=== PATIENT | female | born 1970 | race Caucasian/White ===

== ENCOUNTER 2018-04-14 21:48 | Emergency (ER) | payer MEDICAID, OTHER ==
[2018-04-14] MEDS ORDERED: Sodium Chloride 0.9% 1,000 ML IV ONE (21:53)
[2018-04-14 22:46] LABS: CHLORIDE,CL 102 mmol/L (98-107); SODIUM,NA 133 mmol/L (136-145)
[2018-04-14] MEDS ORDERED: Levofloxacin/Dextrose 5%-Water 750 MG in Premix Bag 1 BAG IV ONE (23:06)
--- NOTE | 2018-04-15 00:39 | EDM.PDOC ---
ED HPI GENERAL MEDICAL PROBLEM - General Chief Complaint: Genitourinary Problem Stated Complaint: ABDOMINAL PAIN Time Seen by Provider: 04/15/18 00:34 Source of Information: Reports: Patient - History of Present Illness INITIAL COMMENTS - FREE TEXT/NARRATIVE: HISTORY AND PHYSICAL: History of present illness: [Patient presents with intermittent subjective fever pain on her left side/ flank she rates 2 out of 10 no pain behaviors no nausea vomiting chills sweats, she has some dysuria the last few days. ] On lab exam she was found to have a hemoglobin of 7 she refuses rectal examination she states that she is chronically between 7 and [address] Bhandari, she refuses admission as she prefers to go to her grandson's birthday republican tomorrow we did discuss risks and benefits. She has clinical pyelonephritis developing and I cannot confirm her hemoglobin on record calf no previous hemoglobin to compare to a she was seen through [facility] Currently no fever nausea vomiting chills sweats no chest pain shortness breath headache dizziness or palpitation no bowel or urine symptoms no fatigue Review of systems: As per history of present illness and below otherwise all systems reviewed and negative. Past medical history: As per history of present illness and as reviewed below otherwise noncontributory. Surgical history: As per history of present illness and as reviewed below otherwise noncontributory. Social history: No reported history of drug or alcohol abuse. Family history: As per history of present illness and as reviewed below otherwise noncontributory. Physical exam: HEENT: Atraumatic, normocephalic, pupils reactive, negative for conjunctival pallor or scleral icterus, mucous membranes moist, throat clear, neck supple, nontender, trachea midline. Lungs: Clear to auscultation, breath sounds equal bilaterally, chest nontender. Heart: S1S2, regular, negative for clicks, rubs, or JVD. Abdomen: Obese Soft, nondistended, nontender. Negative for masses or hepatosplenomegaly. Negative for costovertebral tenderness. Pelvis: Stable nontender. Genitourinary: Deferred. Rectal: Deferred. Extremities: Atraumatic, negative for cords or calf pain. Neurovascular unremarkable. Neuro: Awake, alert, oriented. Cranial nerves II through XII unremarkable. Cerebellum unremarkable. Motor and sensory unremarkable throughout. Exam nonfocal. Diagnostics: [CBC CMP UA lipase ] Therapeutics: [1 L normal saline Levaquin 750 mg IV Levaquin 500 by mouth daily #10 no refill Impression : UTI Clinical pyelonephritis on the left anemia -asymptomatic Chronic history of baseline [] Definitive disposition and diagnosis as appropriate pending reevaluation and review of above. Left Abdomen Pain Score (Numeric/FACES): 6 - Related Data Allergies Allergy/AdvReac Type Severity Reaction Status Date / Time No Known Allergies Allergy Verified 04/14/18 23:57 Home Meds: Home Meds Hydrochlorothiazide 25 mg PO DAILY 02/07/16 [History] Levothyroxine 150 mcg PO DAILY 02/07/16 [History] metFORMIN [Glucophage] 2 tab PO BID 02/07/16 [History] atorvaSTATin [Lipitor] 10 mg PO 04/14/18 [History] Past Medical History HEENT History: Reports: None Cardiovascular History: Reports: Hypertension Respiratory History: Reports: None Gastrointestinal History: Reports: GERD Genitourinary History: Reports: Renal Calculus Musculoskeletal History: Reports: Arthritis Neurological History: Reports: None Psychiatric History: Reports: None Endocrine/Metabolic History: Reports: Diabetes, Type II, Hypothyroidism, Obesity /BMI 30+ Hematologic History: Reports: None Immunologic History: Reports: None Oncologic (Cancer) History: Reports: None Dermatologic History: Reports: None - Past Surgical History Head Surgeries/Procedures: Reports: None GI Surgical History: Reports: Cholecystectomy Social & Family History - Family History Family Medical History: Noncontributory - Tobacco Use Smoking Status *Q: Never Smoker - Caffeine Use Caffeine Use: Reports: None - Recreational Drug Use Recreational Drug Use: No ED ROS GENERAL - Review of Systems Review Of Systems: ROS reveals no pertinent complaints other than HPI. ED EXAM, GENERAL - Physical Exam Exam: See Below Course - Vital Signs Last Recorded V/S: Last Vital Signs Temp 99.1 F 04/14/18 23:26 Pulse 102 H 04/14/18 23:26 Resp 17 04/14/18 23:26 BP 152/67 H 04/14/18 23:26 Pulse Ox 100 04/14/18 23:26 - Orders/Labs/Meds Orders: Active Orders 24 hr Category Date Time Status CULTURE BLOOD [BC] Stat Lab 04/14/18 23:17 Received CULTURE BLOOD [BC] Stat Lab 04/14/18 23:27 Received CULTURE URINE [RM] Stat Lab 04/14/18 22:42 Received Guaiac [OCCULT BLOOD DIAGNOSTIC] [OP] Stat Lab 04/14/18 22:48 Ordered UA W/MICROSCOPIC [URIN] Stat Lab 04/14/18 22:16 Ordered Levofloxacin/Dextrose 5%-Water [Levaquin in D5W 750 MG/ Med 04/14/18 23:06 Active 150 ML] 750 mg Premix Bag 1 bag IV ONETIME Blood Culture x2 Reflex Set [OM.PC] Stat Oth 04/14/18 22:46 Ordered Medication Orders Levofloxacin/Dextrose 750 mg/ (Premix) 150 mls @ 100 mls/hr IV ONETIME ONE Stop: 04/15/18 00:35 Last Admin: 04/14/18 23:34 Dose: 100 mls/hr Labs: Laboratory Tests 04/14/18 04/14/18 04/14/18 Range/Units 22:05 22:05 22:16 WBC 12.51 H (4.0-11.0) K/uL RBC 4.07 L (4.30-5.90) M/uL Hgb 7.2 L (12.0-16.0) g/dL Hct 25.6 L (36.0-46.0) % MCV 62.9 L (80.0-98.0) fL MCH 17.7 L (27.0-32.0) pg MCHC 28.1 L (31.0-37.0) g/dL RDW Std Deviation 44.0 (28.0-62.0) fl RDW Coeff of Ewa 19 H (11.0-15.0) % Plt Count 329 (150-400) K/uL MPV 9.70 (7.40-12.00) fL Neut % (Auto) 76.9 (48.0-80.0) % Lymph % (Auto) 14.0 L (16.0-40.0) % [place]rell % (Auto) 7.4 (0.0-15.0) % Eos % (Auto) 1.4 (0.0-7.0) % Baso % (Auto) 0.3 (0.0-1.5) % Neut # (Auto) 9.6 H (1.4-5.7) K/uL Lymph # (Auto) 1.8 (0.6-2.4) K/uL [place] # (Auto) 0.9 H (0.0-0.8) K/uL Eos # (Auto) 0.2 (0.0-0.7) K/uL Baso # (Auto) 0.0 (0.0-0.1) K/uL Nucleated RBC % 0.0 /100WBC Nucleated RBCs # 0 K/uL Sodium 133 L (136-145) mmol/L Potassium 3.9 (3.5-5.1) mmol/L Chloride 102 (98-107) mmol/L Carbon Dioxide 20.2 L (21.0-32.0) mmol/L BUN 19 H (7.0-18.0) mg/dL Creatinine 1.1 H (0.6-1.0) mg/dL Est Cr Clr Drug Dosing TNP Estimated GFR (MDRD) 53.5 ml/min Glucose 180 H (74-106) mg/dL Calcium 8.6 (8.5-10.1) mg/dL Total Bilirubin 0.3 (0.2-1.0) mg/dL AST 13 L (15-37) IU/L ALT 16 (14-63) IU/L Alkaline Phosphatase 84 (46-116) U/L Troponin I < 0.050 (0.000-0.056) ng/mL Total Protein 7.1 (6.4-8.2) g/dL Albumin 3.2 L (3.4-5.0) g/dL Globulin 3.9 H (2.0-3.5) g/dL Albumin/Globulin Ratio 0.8 L (1.3-2.8) Lipase 129 (73-393) U/L Urine Color YELLOW Urine Appearance CLEAR Urine pH 6.0 (5.0-8.0) Ur Specific [place] 1.020 (1.001-1.035) Urine Protein TRACE (NEGATIVE) mg/dL Urine Glucose (UA) NEGATIVE (NEGATIVE) mg/dL Urine Ketones NEGATIVE (NEGATIVE) mg/dL Urine Occult Blood LARGE H (NEGATIVE) Urine Nitrite NEGATIVE (NEGATIVE) Urine Bilirubin NEGATIVE (NEGATIVE) Urine Urobilinogen 0.2 (<2.0) EU/dL Ur Leukocyte Esterase MODERATE (NEGATIVE) Urine RBC 14-18 (0-2/HPF) Urine WBC 45-52 (0-5/HPF) Ur Epithelial Cells FEW (NONE-FEW) Urine Bacteria FEW (NEGATIVE) Urine Mucus LIGHT (NONE-MOD) Blood Type Antibody Screen 04/14/18 Range/Units 23:17 WBC (4.0-11.0) K/uL RBC (4.30-5.90) M/uL Hgb (12.0-16.0) g/dL Hct (36.0-46.0) % MCV (80.0-98.0) fL MCH (27.0-32.0) pg MCHC (31.0-37.0) g/dL RDW Std Deviation (28.0-62.0) fl RDW Coeff of Ewa (11.0-15.0) % Plt Count (150-400) K/uL MPV (7.40-12.00) fL Neut % (Auto) (48.0-80.0) % Lymph % (Auto) (16.0-40.0) % Tyrrell % (Auto) (0.0-15.0) % Eos % (Auto) (0.0-7.0) % Baso % (Auto) (0.0-1.5) % Neut # (Auto) (1.4-5.7) K/uL Lymph # (Auto) (0.6-2.4) K/uL [place] # (Auto) (0.0-0.8) K/uL Eos # (Auto) (0.0-0.7) K/uL Baso # (Auto) (0.0-0.1) K/uL Nucleated RBC % /100WBC Nucleated RBCs # K/uL Sodium (136-145) mmol/L Potassium (3.5-5.1) mmol/L Chloride (98-107) mmol/L Carbon Dioxide (21.0-32.0) mmol/L BUN (7.0-18.0) mg/dL Creatinine (0.6-1.0) mg/dL Est Cr Clr Drug Dosing Estimated GFR (MDRD) ml/min Glucose (74-106) mg/dL Calcium (8.5-10.1) mg/dL Total Bilirubin (0.2-1.0) mg/dL AST (15-37) IU/L ALT (14-63) IU/L Alkaline Phosphatase (46-116) U/L Troponin I (0.000-0.056) ng/mL Total Protein (6.4-8.2) g/dL Albumin (3.4-5.0) g/dL Globulin (2.0-3.5) g/dL Albumin/Globulin Ratio (1.3-2.8) Lipase (73-393) U/L Urine Color Urine Appearance Urine pH (5.0-8.0) Ur Specific [place] (1.001-1.035) Urine Protein (NEGATIVE) mg/dL Urine Glucose (UA) (NEGATIVE) mg/dL Urine Ketones (NEGATIVE) mg/dL Urine Occult Blood (NEGATIVE) Urine Nitrite (NEGATIVE) Urine Bilirubin (NEGATIVE) Urine Urobilinogen (<2.0) EU/dL Ur Leukocyte Esterase (NEGATIVE) Urine RBC (0-2/HPF) Urine WBC (0-5/HPF) Ur Epithelial Cells (NONE-FEW) Urine Bacteria (NEGATIVE) Urine Mucus (NONE-MOD) Blood Type A POSITIVE Antibody Screen NEGATIVE Meds: Medications Generic Name Dose Route Start Last Admin Trade Name Freq PRN Reason Stop Dose Admin Levofloxacin/Dextrose 750 mg/ 150 mls @ 100 mls/hr 04/14/18 23:06 04/14/18 23 :34 Premix IV 04/15/18 00:35 100 mls/hr ONETIME ONE Administration Discontinued Medications Generic Name Dose Route Start Last Admin Trade Name Freq PRN Reason Stop Dose Admin Sodium Chloride 1,000 mls @ 999 mls/hr 04/14/18 21:53 04/14/18 22:28 Normal Saline IV 04/14/18 22:53 999 mls/hr STAT ONE Administration Departure - Departure Time of Disposition: 00:37 Disposition: Home, Self-Care 01 Condition: Good Clinical Impression: UTI, Urinary tract infectious disease - Discharge Information Referrals: Haile Bhandari MD [Primary Care Provider] - Additional Instructions: Medication as prescribed Return if symptoms persist or worsen Follow-up with Dr. Bhandari on Wednesday and repeat hemoglobin, return to emergency room if symptoms persist or worsen or new concerning symptoms develop such as fever nausea vomiting chills sweats lightheaded dizzy short of breath or fatigue should they develop [address] [address] The following information is given to patients seen in the emergency department who are being discharged to home. This information is to outline your options for follow-up care. We provide all patients seen in our emergency department with a follow-up referral. The need for follow-up, as well as the timing and circumstances, are variable depending upon the specifics of your emergency department visit. If you don't have a primary care physician on staff, we will provide you with a referral. We always advise you to contact your personal physician following an emergency department visit to inform them of the circumstance of the visit and for follow-up with them and/or the need for any referrals to a consulting specialist. The emergency department will also refer you to a specialist when appropriate. This referral assures that you have the opportunity for follow-up care with a specialist. All of these measure are taken in an effort to provide you with optimal care, which includes your follow-up. Under all circumstances we always encourage you to contact your private physician who remains a resource for coordinating your care. When calling for follow-up care, please make the office aware that this follow-up is from your recent emergency room visit. If for any reason you are refused follow-up, please contact the [facility] emergency department at and asked to speak to the emergency department charge nurse. - My Orders Last 24 Hours: My Active Orders 04/14/18 22:16 UA W/MICROSCOPIC [URIN] Stat 04/14/18 22:42 CULTURE URINE [RM] Stat 04/14/18 22:46 Blood Culture x2 Reflex Set [OM.PC] Stat 04/14/18 22:48 Guaiac [OCCULT BLOOD DIAGNOSTIC] [OP] Stat 04/14/18 23:06 Levofloxacin/Dextrose 5%-Water [Levaquin in D5W 750 MG/150 ML] 750 mg Premix Bag 1 bag IV ONETIME 04/14/18 23:17 CULTURE BLOOD [BC] Stat 04/14/18 23:27 CULTURE BLOOD [BC] Stat - Assessment/Plan Last 24 Hours: My Active Orders 04/14/18 22:16 UA W/MICROSCOPIC [URIN] Stat 04/14/18 22:42 CULTURE URINE [RM] Stat 04/14/18 22:46 Blood Culture x2 Reflex Set [OM.PC] Stat 04/14/18 22:48 Guaiac [OCCULT BLOOD DIAGNOSTIC] [OP] Stat 04/14/18 23:06 Levofloxacin/Dextrose 5%-Water [Levaquin in D5W 750 MG/150 ML] 750 mg Premix Bag 1 bag IV ONETIME 04/14/18 23:17 CULTURE BLOOD [BC] Stat 04/14/18 23:27 CULTURE BLOOD [BC] Stat
[2018-04-15 01:37] VITALS: BP 123/77
== END 2018-04-15 01:08 | disposition home or self-care (01) ==
LOC: MW.ED 21:48
DX: N12 Tubulo-interstitial nephritis, not specified as acute or chronic (principal); D64.9 Anemia, unspecified; I10 Essential (primary) hypertension; E11.9 Type 2 diabetes mellitus without complications; E03.9 Hypothyroidism, unspecified; Z79.84 Long term (current) use of oral hypoglycemic drugs; Z79.899 Other long term (current) drug therapy
CPT/HCPCS: 36415; 80053; 81001; 83690; 84484; 85025; 86850; 86900; 86901; 87040; 87086; 87088; 87186; 96361; 96365; 96366; 99284; J1956; J7040; 99283

== ENCOUNTER 2018-05-26 08:23 | Day surgery (SDC) | payer MEDICAID, OTHER ==
[~2018-05-26 08:23] MED LIST: Acetaminophen 1,000 MG in Premix Bag 1 BAG IV SCH; Lidocaine 2% 5 ML SDV ONE; Midazolam 1 MG/ML 2 ML SDV ONE; Ondansetron 4 MG/2 ML SDV ONE; Propofol 200 MG/20 ML SDV ONE; Rocuronium 10 MG/ML 10 ML Syringe ONE; Scopolamine 1.5 MG Transdermal Patch TRDERM PRN; Sodium Chloride 0.9% 10 ML Syringe FLUSH PRN; Sodium Chloride 0.9% 2.5 ML Syringe FLUSH PRN; ceFAZolin 1 GM Vial IV SCH; fentaNYL 100 MCG/2 ML SDV IVPUSH PRN; fentaNYL 250 MCG/5 ML SDV ONE
[2018-05-26] MEDS: Lactated Ringers 1,000 ML IV SCH ×2 (09:02→14:50)
--- NOTE | 2018-05-26 09:09 | PCM.PREANE ---
Preanesthetic Assessment - Anesthesia/Transfusion/Family Hx Anesthesia History: Prior Anesthesia Without Reaction Family History of Anesthesia Reaction: No Transfusion History: No Prior Transfusion(s) Intubation History: Unknown - Review of Systems General: No Symptoms Pulmonary: No Symptoms Cardiovascular: No Symptoms Gastrointestinal: No Symptoms Neurological: No Symptoms Other: Reports: None - Physical Assessment O2 Sat by Pulse Oximetry: 100 Respiratory Rate: 16 Vital Signs: Last Vital Signs Temp 36.8 C 05/26/18 08:56 Pulse 89 05/26/18 08:56 Resp 16 05/26/18 08:56 BP 175/84 H 05/26/18 08:56 Pulse Ox 100 05/26/18 08:56 Height: 1.6 m Weight: 131.542 kg ASA Class: 3 Mental Status: Alert & Oriented x3 Airway Class: Mallampati = 2 Dentition: Reports: Normal Dentition Thyro-Mental Finger Breadths: 3 Mouth Opening Finger Breadths: 3 ROM/Head Extension: Full Lungs: Clear to Auscultation, Normal Respiratory Effort Cardiovascular: Regular Rate, Regular Rhythm - Lab Values: Laboratory Last Values WBC 5.41 K/uL (4.0-11.0) 05/25/18 11:34 RBC 4.21 M/uL (4.30-5.90) L 05/25/18 11:34 Hgb 7.9 g/dL (12.0-16.0) L 05/25/18 11:34 Hct 28.4 % (36.0-46.0) L 05/25/18 11:34 MCV 67.5 fL (80.0-98.0) L 05/25/18 11:34 MCH 18.8 pg (27.0-32.0) L 05/25/18 11:34 MCHC 27.8 g/dL (31.0-37.0) L 05/25/18 11:34 RDW Std Deviation 58.2 fl (28.0-62.0) 05/25/18 11:34 RDW Coeff of Ewa 24 % (11.0-15.0) H 05/25/18 11:34 Plt Count 438 K/uL (150-400) H 05/25/18 11:34 MPV 8.80 fL (7.40-12.00) 05/25/18 11:34 Nucleated RBC % 0.0 /100WBC 05/25/18 11:34 Nucleated RBCs # 0 K/uL 05/25/18 11:34 Sodium 138 mmol/L (136-145) 05/25/18 11:34 Potassium 4.2 mmol/L (3.5-5.1) 05/25/18 11:34 Chloride 104 mmol/L (98-107) 05/25/18 11:34 Carbon Dioxide 25.3 mmol/L (21.0-32.0) 05/25/18 11:34 BUN 13 mg/dL (7.0-18.0) 05/25/18 11:34 Creatinine 1.0 mg/dL (0.6-1.0) 05/25/18 11:34 Est Cr Clr Drug Dosing 58.15 mL/min 05/25/18 11:34 Estimated GFR (MDRD) 59.7 ml/min 05/25/18 11:34 Glucose 124 mg/dL (74-106) H 05/25/18 11:34 Calcium 8.5 mg/dL (8.5-10.1) 05/25/18 11:34 HCG, Qual NEGATIVE (NEG) 05/25/18 11:34 Blood Type A POSITIVE 05/25/18 11:34 Antibody Screen NEGATIVE 05/25/18 11:34 Crossmatch See Detail 05/25/18 11:34 - Allergies Allergies/Adverse Reactions: Allergies Allergy/AdvReac Type Severity Reaction Status Date / Time No Known Allergies Allergy Verified 05/26/18 09:03 - Blood Blood Available: No - Anesthesia Plan Pre-Op Medication Ordered: None - Acknowledgements Anesthesia Type Planned: General Anesthesia Pt an Appropriate Candidate for the Planned Anesthesia: Yes Alternatives and Risks of Anesthesia Discussed w Pt/Guardian: Yes Pt/Guardian Understands and Agrees with Anesthesia Plan: Yes PreAnesthesia Questionnaire HEENT History: Reports: Other (See Below) Other HEENT History: wears glasses Cardiovascular History: Reports: High Cholesterol, Hypertension Respiratory History: Reports: None Gastrointestinal History: Reports: Other (See Below) Other Gastrointestinal History: occasional heartburn, h/o gastric ulcer Genitourinary History: Reports: Renal Calculus [employer] History: Reports: Dysfunctional Uterine Bleeding, Musculoskeletal History: Reports: Arthritis Neurological History: Reports: None Psychiatric History: Reports: None Endocrine/Metabolic History: Reports: Diabetes, Type II, Hypothyroidism, Obesity /BMI 30+ Hematologic History: Reports: Anemia Immunologic History: Reports: None Oncologic (Cancer) History: Reports: None Dermatologic History: Reports: None - Past Surgical History Head Surgeries/Procedures: Reports: None GI Surgical History: Reports: Cholecystectomy Female Surgical History: Reports: Kidney stone extraction, Tubal Ligation Other Female Surgeries/Procedures: surgical procedure for removal of kidney stone Dermatological Surgical History: Reports: Other (See Below) - SUBSTANCE USE Smoking Status *Q: Never Smoker Recreational Drug Use History: No - HOME MEDS Home Medications: Home Meds Hydrochlorothiazide 25 mg PO DAILY 02/07/16 [History] metFORMIN [Glucophage] 2 tab PO BID 02/07/16 [History] atorvaSTATin [Lipitor] 10 mg PO DAILY 04/14/18 [History] Hydrocodone/Acetaminophen [Hydrocodon-Acetaminophen 5-325] 1 tab PO ASDIRECTED PRN 05/23/18 [History] Levothyroxine Sodium [Synthroid] 25 mg PO DAILY 05/23/18 [History] Lisinopril 5 mg PO DAILY 05/23/18 [History] - CURRENT (IN HOUSE) MEDS Current Meds: Current Medications Cefazolin Sodium (Ancef) 3 gm IV ONETIME ADELITA Fentanyl (Sublimaze) 50 mcg IVPUSH .Q5MIN PRN PRN Reason: Pain Lactated Ringer's (Ringers, Lactated) 1,000 mls @ 125 mls/hr IV ASDIRECTED ADELITA Last Admin: 05/26/18 09:02 Dose: 125 mls/hr Acetaminophen 1,000 mg/ Premix 100 mls @ 400 mls/hr IV .ONETIME ADELITA Last Admin: 05/26/18 09:03 Dose: 400 mls/hr Scopolamine (Transderm-Scop) 1.5 mg TRDERM .ONCE PRN PRN Reason: Post Op Nausea Last Admin: 05/26/18 09:02 Dose: 1.5 mg Sodium Chloride (Saline Flush) 10 ml FLUSH ASDIRECTED PRN PRN Reason: Keep Vein Open Sodium Chloride (Saline Flush) 2.5 ml FLUSH ASDIRECTED PRN PRN Reason: Keep Vein Open Discontinued Medications Fentanyl (Sublimaze) Confirm Administered Dose 250 mcg .ROUTE .STK-MED ONE Stop: 05/26/18 07:29 Lidocaine (Xylocaine-Mpf 2%) Confirm Administered Dose 5 ml .ROUTE .STK-MED ONE Stop: 05/26/18 07:29 Midazolam HCl (Versed 1 Mg/Ml) Confirm Administered Dose 2 mg .ROUTE .STK-MED ONE Stop: 05/26/18 07:29 Ondansetron HCl (Zofran) Confirm Administered Dose 4 mg .ROUTE .STK-MED ONE Stop: 05/26/18 07:29 Propofol (Diprivan 20 Ml) Confirm Administered Dose 200 mg .ROUTE .STK-MED ONE Stop: 05/26/18 07:29 Rocuronium [place] (Zemuron) Confirm Administered Dose 100 mg .ROUTE .STK-MED ONE Stop: 05/26/18 07:29
[2018-05-26] MEDS ORDERED: ceFAZolin/Dextrose,Iso-Osmotic 2 GM/50 ML Duplex Bag IV ONE (09:47)
[2018-05-26] MEDS ORDERED: ceFAZolin 1 GM Vial ONE (09:47)
[2018-05-26] MEDS ORDERED: Fluorescein 5 ML Vial ONE (10:27)
[2018-05-26] MEDS ORDERED: diphenhydrAMINE 50 MG/ML SDV ONE (10:32)
[2018-05-26] MEDS ORDERED: HYDROmorphone 2 MG/ML SDV ONE (10:34)
[2018-05-26] MEDS ORDERED: Furosemide 40 MG/4 ML VIAL ONE (10:36)
[2018-05-26] MEDS ORDERED: Glycopyrrolate 0.2 MG/ML SDV ONE (10:57)
[2018-05-26] MEDS ORDERED: Neostigmine Methylsulfate 1 MG/ML 5 ML Syringe ONE (10:57)
[2018-05-26] MEDS ORDERED: Acetaminophen/oxyCODONE 325-5 MG Tab PO PRN (11:05)
[2018-05-26] MEDS ORDERED: Promethazine 25 MG/ML SDV IM PRN (11:05)
[2018-05-26] MEDS ORDERED: Ketorolac 30 MG/ML SDV IVPUSH ONE ×2 (11:05→14:30)
[2018-05-26] MEDS ORDERED: Morphine 4 MG/ML Syringe IVPUSH PRN (11:05)
[2018-05-26] MEDS ORDERED: Ondansetron 4 MG/2 ML SDV IVPUSH PRN (11:05)
--- NOTE | 2018-05-26 11:11 | PCM.OPNOTE ---
- General Post-Op/Procedure Note Date of Surgery/Procedure: 05/26/18 Operative Procedure(s): TVH, RSO and cystoscopy Pre Op Diagnosis: bleeding. Post-Op Diagnosis: Same Anesthesia Technique: General ET Tube Primary Surgeon: Aleksander Ray EBL in mLs: 150 Complications: None Condition: Good
[2018-05-26] MEDS: Acetaminophen/oxyCODONE 325-5 MG Tab PO PRN ×2 (12:57→19:16)
--- NOTE | 2018-05-26 13:50 | OR ---
SURGEON: Aleksander Ray MD DATE OF PROCEDURE: 05/26/2018 PREOPERATIVE DIAGNOSES: 1. Menometrorrhagia. 2. Anemia. POSTOPERATIVE DIAGNOSES: 1. Menometrorrhagia. 2. Anemia. OPERATIONS PERFORMED: Total vaginal hysterectomy and left salpingo-oophorectomy and cystoscopy. PHYSICIAN RECRUITER: OR tech. ANESTHESIA: General endotracheal intubation, Andreia Subramanian and Dr. Alston. ESTIMATED BLOOD LOSS: 150 mL. COMPLICATIONS: None. FINDINGS: Uterus is about 10-week size. The left tube and ovary essentially are normal. The right tube and ovary are not visible through the operative field. INDICATION FOR SURGERY: [place] referred to the admit note. PROCEDURE IN DETAIL: The patient was brought to the OR, properly identified and after adequate level of general anesthesia and taking a time-out, the patient was placed in lithotomy position, prepped and draped in sterile fashion as usual. A straight catheter was used to empty the bladder, and then a short-weighted speculum was placed in the vagina. Circular incision in the vaginal mucosa around the cervix was done using electrocautery and then the posterior cul-de-sac entered posteriorly. The perineum and the vagina tacked posteriorly with 2-0 Vicryl, held for further identification. Then extended long weighted speculum placed within in, then the short weighted speculum replaced with an extended long weighted speculum. The uterosacral ligament identified from both sides, clamped with a curved Zeppelin, transected, and suture-ligated with 2-0 Vicryl pop-off. The same thing was done with the cardinal ligament from both sides and then the cervicovesical space entered anteriorly and the bladder retracted completely away from the operative field. The broad ligament was clamped with a curved Zeppelin from both sides, transected, and suture-ligated with 2-0 Vicryl pop-off. The uterine vessel suture-ligated at this step and then the round ligament clamped with a curved Zeppelin from both sides, transected, and suture-ligated with 2-0 Vicryl pop- off. Next, the uterus delivered posteriorly and the superior pedicle was taken with 90 degree curved Zeppelin. The left tube and ovary were taken because easily accessible and visible. The right tube and ovary were not visible and were not accessible, and I elected not to remove them. The superior pedicle tied twice with a free tie on both sides. The vaginal cuff was closed with 2-0 Vicryl interrupted [id number] sutures. Cystoscopy was performed, and the bladder was intact. Both ureteric orifices were seen with fluorescein dye coming from both of them. Thus, the patency of both ureters verified. Instrument and sponge count was correct. The patient tolerated the procedure well and went to recovery room in stable general condition. DEONTE / DANE /[id number] MTDShauna
[2018-05-26] MEDS ORDERED: Ketorolac 30 MG/ML SDV IVPUSH PRN (20:30)
[2018-05-27] MEDS: Acetaminophen/oxyCODONE 325-5 MG Tab PO PRN ×3 (01:24→10:22)
[2018-05-27 05:12] VITALS: BP 120/60
--- NOTE | 2018-05-27 07:43 | PCM48HPAN ---
Post Anesthesia Note - EVALUATION WITHIN 48HRS OF ANESTHETIC Vital Signs in Normal Range: Yes Patient Participated in Evaluation: Yes Respiratory Function Stable: Yes Airway Patent: Yes Cardiovascular Function Stable: Yes Hydration Status Stable: Yes Pain Control Satisfactory: Yes Nausea and Vomiting Control Satisfactory: Yes Mental Status Recovered: Yes Resp Rate: 18 - COMMENTS/OBSERVATIONS Free Text/Narrative:: Pt states she had a problem with pain control last night around shift change - just not receiving medication in time and then playing catch up. However, she said after that she has kept on a schedule and is doing well this morning. No problems with nausea. No apparent anesthesia complications. Hgb 8.0 this AM after 2 units intraop yesterday.
--- NOTE | 2018-05-27 09:27 | PCM.PN ---
- General Info Date of Service: 05/27/18 Functional Status: Reports: Pain Controlled - Review of Systems General: Reports: No Symptoms HEENT: Reports: No Symptoms Pulmonary: Reports: No Symptoms Cardiovascular: Reports: No Symptoms Gastrointestinal: Reports: No Symptoms Genitourinary: Reports: No Symptoms Musculoskeletal: Reports: No Symptoms Skin: Reports: No Symptoms Neurological: Reports: No Symptoms Psychiatric: Reports: No Symptoms - Patient Data Vitals - Most Recent: Last Vital Signs Temp 36.3 C 05/27/18 05:00 Pulse 78 05/27/18 05:00 Resp 18 05/27/18 07:43 BP 120/60 05/27/18 05:00 Pulse Ox 98 05/27/18 05:00 Weight - Most Recent: 131.542 kg I&O - Last 24 Hours: Intake & Output 05/26/18 05/27/18 05/27/18 22:59 06:59 14:59 Intake Total 1500 Balance 1500 Lab Results Last 24 Hours: Laboratory Results - last 24 hr 05/25/18 05/25/18 05/25/18 Range/Units 11:34 11:34 11:34 WBC (4.0-11.0) K/uL RBC (4.30-5.90) M/uL Hgb (12.0-16.0) g/dL Hct (36.0-46.0) % MCV (80.0-98.0) fL MCH (27.0-32.0) pg MCHC (31.0-37.0) g/dL RDW Std Deviation (28.0-62.0) fl RDW Coeff of Ewa (11.0-15.0) % Plt Count (150-400) K/uL MPV (7.40-12.00) fL Neut % (Auto) (48.0-80.0) % Lymph % (Auto) (16.0-40.0) % [place] % (Auto) (0.0-15.0) % Eos % (Auto) (0.0-7.0) % Baso % (Auto) (0.0-1.5) % Neut # (Auto) (1.4-5.7) K/uL Lymph # (Auto) (0.6-2.4) K/uL [place] # (Auto) (0.0-0.8) K/uL Eos # (Auto) (0.0-0.7) K/uL Baso # (Auto) (0.0-0.1) K/uL Nucleated RBC % /100WBC Nucleated RBCs # K/uL Sodium 138 (136-145) mmol/L Potassium 4.2 (3.5-5.1) mmol/L Chloride 104 (98-107) mmol/L Carbon Dioxide 25.3 (21.0-32.0) mmol/L BUN 13 (7.0-18.0) mg/dL Creatinine 1.0 (0.6-1.0) mg/dL Est Cr Clr Drug Dosing 58.15 mL/min Estimated GFR (MDRD) 59.7 ml/min Glucose 124 H (74-106) mg/dL Calcium 8.5 (8.5-10.1) mg/dL Blood Type A POSITIVE Antibody Screen NEGATIVE Crossmatch See Detail See Detail 05/27/18 05/27/18 Range/Units 04:58 04:58 WBC 8.20 (4.0-11.0) K/uL RBC 3.83 L (4.30-5.90) M/uL Hgb 8.0 L (12.0-16.0) g/dL Hct 27.3 L (36.0-46.0) % MCV 71.3 L (80.0-98.0) fL MCH 20.9 L (27.0-32.0) pg MCHC 29.3 L (31.0-37.0) g/dL RDW Std Deviation 63.1 H (28.0-62.0) fl RDW Coeff of Ewa 24 H (11.0-15.0) % Plt Count 347 (150-400) K/uL MPV 8.80 (7.40-12.00) fL Neut % (Auto) 67.4 (48.0-80.0) % Lymph % (Auto) 23.5 (16.0-40.0) % [place] % (Auto) 6.5 (0.0-15.0) % Eos % (Auto) 2.4 (0.0-7.0) % Baso % (Auto) 0.2 (0.0-1.5) % Neut # (Auto) 5.5 (1.4-5.7) K/uL Lymph # (Auto) 1.9 (0.6-2.4) K/uL [place] # (Auto) 0.5 (0.0-0.8) K/uL Eos # (Auto) 0.2 (0.0-0.7) K/uL Baso # (Auto) 0.0 (0.0-0.1) K/uL Nucleated RBC % 0.0 /100WBC Nucleated RBCs # 0 K/uL Sodium 137 (136-145) mmol/L Potassium 4.6 (3.5-5.1) mmol/L Chloride 103 (98-107) mmol/L Carbon Dioxide 29.2 (21.0-32.0) mmol/L BUN 13 (7.0-18.0) mg/dL Creatinine 1.1 H (0.6-1.0) mg/dL Est Cr Clr Drug Dosing 52.86 mL/min Estimated GFR (MDRD) 53.5 ml/min Glucose 121 H (74-106) mg/dL Calcium 8.0 L (8.5-10.1) mg/dL Blood Type Antibody Screen Crossmatch Med Orders - Current: Current Medications Cefazolin Sodium (Ancef) 3 gm IV ONETIME [facility] Fentanyl (Sublimaze) 50 mcg IVPUSH .Q5MIN PRN PRN Reason: Pain Lactated Ringer's (Ringers, Lactated) 1,000 mls @ 125 mls/hr IV ASDIRECTED [facility] Last Admin: 05/26/18 14:50 Dose: 125 mls/hr Acetaminophen 1,000 mg/ Premix 100 mls @ 400 mls/hr IV .ONETIME [facility] Last Admin: 05/26/18 09:03 Dose: 400 mls/hr Ketorolac Tromethamine (Toradol) 30 mg IVPUSH Q6H PRN PRN Reason: Pain (severe 7-10) Stop: 05/31/18 20:31 Last Admin: 05/26/18 21:21 Dose: 30 mg Ondansetron HCl (Zofran) 4 mg IVPUSH Q6H PRN PRN Reason: Nausea/Vomiting Oxycodone/Acetaminophen (Percocet 325-5 Mg) 1 tab PO Q4H PRN PRN Reason: Pain (moderate 4-6) Oxycodone/Acetaminophen (Percocet 325-5 Mg) 2 tab PO Q4H PRN PRN Reason: Pain (moderate 4-6) Last Admin: 05/27/18 06:01 Dose: 2 tab Promethazine HCl (Phenergan) 25 mg IM Q6H PRN PRN Reason: Nausea/Vomiting Scopolamine (Transderm-Scop) 1.5 mg TRDERM .ONCE PRN PRN Reason: Post Op Nausea Last Admin: 05/26/18 09:02 Dose: 1.5 mg Sodium Chloride (Saline Flush) 10 ml FLUSH ASDIRECTED PRN PRN Reason: Keep Vein Open Sodium Chloride (Saline Flush) 2.5 ml FLUSH ASDIRECTED PRN PRN Reason: Keep Vein Open Discontinued Medications Cefazolin Sodium (Ancef) Confirm Administered Dose 1 gm .ROUTE .STK-MED ONE Stop: 05/26/18 09:48 Cefazolin Sodium/Dextrose (Ancef) Confirm Administered Dose 2 gm IV .STK-MED ONE Stop: 05/26/18 09:48 Diphenhydramine HCl (Benadryl) Confirm Administered Dose 50 mg .ROUTE .STK-MED ONE Stop: 05/26/18 10:33 Fentanyl (Sublimaze) Confirm Administered Dose 250 mcg .ROUTE .STK-MED ONE Stop: 05/26/18 07:29 Fluorescein Sodium (Ak-Fluor) Confirm Administered Dose 5 ml .ROUTE .STK-MED ONE Stop: 05/26/18 10:28 Furosemide (Lasix) Confirm Administered Dose 40 mg .ROUTE .STK-MED ONE Stop: 05/26/18 10:37 Glycopyrrolate (Robinul) Confirm Administered Dose 0.4 mg .ROUTE .STK-MED ONE Stop: 05/26/18 10:58 Hydromorphone HCl (Dilaudid) Confirm Administered Dose 2 mg .ROUTE .STK-MED ONE Stop: 05/26/18 10:35 Ketorolac Tromethamine (Toradol) 30 mg IVPUSH ONETIME ONE Stop: 05/26/18 11:06 Last Admin: 05/26/18 14:53 Dose: Not Given Ketorolac Tromethamine (Toradol) 30 mg IVPUSH ONETIME ONE Stop: 05/26/18 14:31 Last Admin: 05/26/18 14:50 Dose: 30 mg Lidocaine (Xylocaine-Mpf 2%) Confirm Administered Dose 5 ml .ROUTE .STK-MED ONE Stop: 05/26/18 07:29 Midazolam HCl (Versed 1 Mg/Ml) Confirm Administered Dose 2 mg .ROUTE .STK-MED ONE Stop: 05/26/18 07:29 Morphine Sulfate (Morphine) 4 mg IVPUSH Q2H PRN PRN Reason: Pain (severe 7-10) Neostigmine Methylsulfate (Neostigmine) Confirm Administered Dose 5 mg .ROUTE .STK-MED ONE Stop: 05/26/18 10:58 Ondansetron HCl (Zofran) Confirm Administered Dose 4 mg .ROUTE .STK-MED ONE Stop: 05/26/18 07:29 Propofol (Diprivan 20 Ml) Confirm Administered Dose 200 mg .ROUTE .STK-MED ONE Stop: 05/26/18 07:29 Rocuronium [place] (Zemuron) Confirm Administered Dose 100 mg .ROUTE .STK-MED ONE Stop: 05/26/18 07:29 - Exam General: Alert, Oriented HEENT: Pupils Equal, Pupils Reactive, EOMI, Mucous Membr. Moist/[place] Neck: Supple Lungs: Clear to Auscultation, Normal Respiratory Effort Cardiovascular: Regular Rate, Regular Rhythm GI/Abdominal Exam: Normal Bowel Sounds, Soft, Non-Tender, No Organomegaly, No Distention, No Abnormal Bruit, No Mass, Pelvis Stable (Female) Exam: Normal External Exam, Normal Speculum Exam, Normal Bimanual Exam Back Exam: Normal Inspection, Full Range of Motion Extremities: Normal Inspection, Normal Range of Motion, Non-Tender, No Pedal Edema, Normal Capillary Refill Skin: Warm, Dry, Intact Wound/Incisions: Healing Well Neurological: No New Focal Deficit Psy/Mental Status: Alert, Normal Affect, Normal Mood - Problem List Review Problem List Initiated/Reviewed/Updated: Yes - My Orders Last 24 Hours: My Active Orders 05/26/18 11:05 Patient Status [ADT] Routine Notify Provider Vital Signs [RC] ASDIRECTED Oxygen Therapy [RC] ASDIRECTED RT Incentive Spirometry [RC] Q2HWA Up With Assistance [RC] PER UNIT ROUTINE Up ad [place] [RC] PER UNIT ROUTINE Vital Signs [RC] PER UNIT ROUTINE Acetaminophen/oxyCODONE [Percocet 325-5 MG] 1 tab PO Q4H PRN Acetaminophen/oxyCODONE [Percocet 325-5 MG] 2 tab PO Q4H PRN Ondansetron [Zofran] 4 mg IVPUSH Q6H PRN Promethazine [Phenergan] 25 mg IM Q6H PRN Peripheral IV Discontinue [OM.PC] Routine Sequential Compression Device [OM.PC] Per Unit Routine Resuscitation Status Routine 05/26/18 20:30 Ketorolac [Toradol] 30 mg IVPUSH Q6H PRN 05/26/18 Dinner Regular Diet [DIET] - Assessment Assessment:: Status post vaginal hysterectomy postoperative day #1 the patient infiltrate on regular diet and her pain is in control there is no vaginal bleeding had lab work is excellent. She received 2 units of packed cells - Plan Plan:: Patient will be discharged today the postvasectomy instruction is given to the patient and Percocet 7.5/325 is prescription is given to the patient for postoperative pain she is already have an appointment to come to the office one week from discharge.
== END 2018-05-27 12:45 | disposition home or self-care (01) ==
LOC: MW.SDS 08:23 → MW.MS 11:38 → MW.SDS 05-27 12:45
PROVIDERS: ATTEND Obstetrics & Gynecology
DX: D25.9 Leiomyoma of uterus, unspecified (principal); N84.0 Polyp of corpus uteri; E78.00 Pure hypercholesterolemia, unspecified; I10 Essential (primary) hypertension; M19.90 Unspecified osteoarthritis, unspecified site; E11.9 Type 2 diabetes mellitus without complications; E03.9 Hypothyroidism, unspecified; D64.9 Anemia, unspecified; E66.9 Obesity, unspecified; Z68.43 Body mass index [BMI] 50.0-59.9, adult; Z79.84 Long term (current) use of oral hypoglycemic drugs; Z79.899 Other long term (current) drug therapy
CPT/HCPCS: 36415; 36430; 58291; 80048; 84703; 85025; 85027; 86850; 86900; 86901; 86920; 86921; 86922; A9270; J0690; J1170; J1200; J1885; J1940; J2250; J2405; J3010; J7120; P9016; 88309; J2704

== ENCOUNTER 2023-08-31 16:54 | Emergency (ER) | payer SELFPAY ==
[2023-08-31] MEDS ORDERED: Ibuprofen 800 MG Tab PO ONE (18:45)
[2023-08-31] MEDS ORDERED: Acetaminophen/HYDROcodone 325-5 MG Tab PO ONE (18:45)
[2023-08-31 19:14] VITALS: BP 189/124; PULSE 91
== END 2023-08-31 19:13 | disposition home or self-care (01) ==
LOC: MW.ED 16:54
DX: M25.562 Pain in left knee (principal); E11.9 Type 2 diabetes mellitus without complications; E03.9 Hypothyroidism, unspecified; E66.9 Obesity, unspecified; E78.00 Pure hypercholesterolemia, unspecified; I10 Essential (primary) hypertension; Z79.84 Long term (current) use of oral hypoglycemic drugs; Z79.899 Other long term (current) drug therapy; Z68.42 Body mass index [BMI] 45.0-49.9, adult
CPT/HCPCS: 73562; 99283; A9270

== ENCOUNTER 2025-04-26 13:43 | Emergency (ER) | payer BC ==
[2025-04-26] MEDS ORDERED: Sodium Chloride 0.9% 2.5 ML Syringe FLUSH PRN (14:09)
[2025-04-26] MEDS ORDERED: Sodium Chloride 0.9% 10 ML Syringe FLUSH PRN (14:09)
[2025-04-26] MEDS ORDERED: Sodium Chloride 0.9% 20 ML SDV IV PRN (14:09)
[2025-04-26 14:13] LABS: BASOPHILS ABSOLUTE AUTO 0.05 K/uL (0.00-0.20); BASOPHILS PERCENT AUTO 0.6 % (0.0-1.0); EOSINOPHILS ABSOLUTE AUTO 0.15 K/uL (0.00-0.45); EOSINOPHILS PERCENT AUTO 1.9 % (0.0-6.0); HEMATOCRIT 41.8 % (37.0-47.0); HEMOGLOBIN 14.1 g/dL (12.0-16.0); IMMATURE GRAN ABSOLUTE AUTO 0.02 K/uL (0.00-0.05); IMMATURE GRAN PERCENT AUTO 0.3 % (0.0-0.4); LYMPHOCYTES ABSOLUTE AUTO 2.58 K/uL (1.00-4.80); LYMPHOCYTES PERCENT AUTO 32.4 % (24.0-44.0); MEAN CORPUSCULAR HEMOGLOBIN 29.4 pg (28.0-32.0); MEAN CORPUSCULAR HGB CONC 33.7 g/dL (32.0-36.0); MEAN CORPUSCULAR VOLUME 87.1 fL (83.0-99.0); MEAN PLATELET VOLUME 9.9 fL (9.4-12.3); MONOCYTES ABSOLUTE AUTO 0.48 K/uL (0.00-0.80); NEUTROPHILS ABSOLUTE AUTO 4.68 K/uL (1.80-7.70); NEUTROPHILS PERCENT AUTO 58.8 % (41.0-71.0); PLATELET COUNT,PLT 283 K/uL (150-400); WHITE BLOOD CELL COUNT,WBC 7.96 K/uL (3.9-11.3)
[2025-04-26 14:46] LABS: A/G RATIO 0.9 (0.9-1.6); ALBUMIN 3.5 g/dL (3.4-5.0); BILIRUBIN TOTAL 0.5 mg/dL (0.2-1.0); CALCIUM 9.2 mg/dL (8.5-10.1); CARBON DIOXIDE,CO2 29.5 mmol/L (21.0-32.0); CREATININE 1.2 mg/dL (0.6-1.0); EST CRCL DRUG DOSING (CG) 44.85 mL/min; MAGNESIUM 1.4 mg/dL (1.8-2.4); POTASSIUM,K 4.2 mmol/L (3.5-5.1); PROTEIN TOTAL,TP 7.3 g/dL (6.4-8.2)
[2025-04-26] MEDS: Aspirin 81 MG Tab.Chew PO ONE (14:47)
[2025-04-26] MEDS: Magnesium Sulfate 2 GM/50 mL 2 GM in Premix Bag 1 BAG IV ONE (14:57)
[2025-04-26] MEDS: Iopamidol 755 MG/ML 500 ML Multipack Bottle IVPUSH STA (15:22)
[2025-04-26 18:24] VITALS: BP 138/82; PULSE 80
== END 2025-04-26 18:24 | disposition home or self-care (01) ==
LOC: MW.ED 13:43
DX: I24.9 Acute ischemic heart disease, unspecified (principal); I10 Essential (primary) hypertension; E11.9 Type 2 diabetes mellitus without complications; E03.9 Hypothyroidism, unspecified; E78.00 Pure hypercholesterolemia, unspecified; M19.90 Unspecified osteoarthritis, unspecified site; E66.9 Obesity, unspecified; Z79.899 Other long term (current) drug therapy; Z79.890 Hormone replacement therapy; Z79.84 Long term (current) use of oral hypoglycemic drugs; Z90.710 Acquired absence of both cervix and uterus; Z90.49 Acquired absence of other specified parts of digestive tract; Z68.42 Body mass index [BMI] 45.0-49.9, adult
CPT/HCPCS: 36415; 71045; 71275; 80053; 83690; 83735; 83880; 84484; 85025; 85379; 93005; 96365; 99285; A9270; J3475; Q9967; 93010; 99284